=== PATIENT | female | born 1990 | race Caucasian/White ===

== ENCOUNTER 2020-12-01 01:48 | Inpatient (IN) | payer OTHER ==
[~2020-12-01] VITALS: Ht 160 cm; Wt 47.2 kg
[2020-12-01 01:54] VITALS: BP 122/75
[2020-12-01] MEDS ORDERED: PROAIR HFA8.5 GM INH (02:28)
[2020-12-01 02:36] LABS: ABSOLUTE NEUTROPHILS 9.7 thou/uL (1.4-8.2); BASOPHILS 0.4 % (0.0-2.0); EOSINOPHILS 0.2 % (0.0-3.0); HEMOGLOBIN 12.4 gm/dL (12.0-15.0); LYMPHOCYTES 9.4 % (24.0-44.0); MCH 28.6 pg (26.0-34.0); MCHC 32.5 g/dL (28.0-37.0); MCV 87.9 fL (80.0-100.0); MONOCYTES 6.9 % (1.0-8.0); PLATELET COUNT 278 thou/uL (150-400); POLYS 83.1 % (36.0-66.0); RBC 4.33 mil/uL (4.20-5.00); RDW 14.1 % (10.5-14.5); WBC 11.7 thou/uL (4.0-11.0)
[2020-12-01 02:47] LABS: URINE BILIRUBIN NEGATIVE (Negative); URINE BLOOD TRACE (Negative); URINE CLARITY CLEAR; URINE COLOR YELLOW; URINE GLUCOSE-RANDOM* NEGATIVE (Negative); URINE KETONES NEGATIVE (Negative); URINE PROTEIN (DIPSTICK) NEGATIVE (Negative); URINE UROBILINOGEN 0.2 E.U./dl (0.2-1.0)
[2020-12-01 02:49] LABS: URINE LEUKOCYTES-REFLEX 1+ (Negative); URINE NITRITE-REFLEX POSITIVE (Negative)
[2020-12-01 02:52] LABS: CALCIUM 8.9 mg/dL (8.5-10.1); CREATININE 1.1 mg/dL (0.6-1.0); POTASSIUM 3.2 mmol/L (3.5-5.1)
[2020-12-01 02:56] LABS: ALBUMIN 3.5 g/dL (3.4-5.0); TOTAL BILIRUBIN 0.3 mg/dL (0.2-1.0); TOTAL PROTEIN 7.4 g/dL (6.4-8.2)
[2020-12-01 03:19] LABS: BACTERIA-REFLEX >30 Many /HPF (None Seen); CASTS None Seen /LPF (None Seen); CRYSTALS None Seen /LPF (None Seen); MUCUS None Seen strn/LPF (None Seen); SQUAMOUS 0-3 Few /LPF (0-3); URINE RBC None Seen /HPF (0-2); URINE WBC-REFLEX 6-15 Few /HPF (0-5)
[2020-12-01 04:13] VITALS: BP 102/72
--- NOTE | 2020-12-01 04:21 | NUR ---
Attempted to call report to 4th floor nurse. Reports she is on a break and will call back.
[2020-12-01 04:49] VITALS: BP 95/62
--- NOTE | 2020-12-01 05:44 | NUR ---
PT ADMITTED TO THE UNIT WITH C/O FLANK PAIN AND ABDOMINAL PAIN X3DAYS ALONG WITH A HEADACHE .SHE HASNT HAD A BM FOR 3DAYS.PT HAS A TEMPERATURE OF 101.5 ON ADMISSIONA AND TYLENOL ORDERED PRN AND GIVEN. .PT IS A/O X4.PT IS UP AD TERRY.PT ASSESSMENT AND ADMISSION HISTORY DONE .IV ACCESS ON RT AC SL.PT SKIN WITH TATTOO AND NO OTHER SKIN ISSUES.PT IS ON ROOM AIR .WILL CONTINUE TO MONITOR POC
[2020-12-01 08:43] VITALS: BP 105/56
--- NOTE | 2020-12-01 10:59 | NUR ---
Received awake on bed. Due medications given as prescribed, able to swallow meds w/o difficulty. On room air. Vital signs stable. On regular diet- tolerating well; no nausea, no vomiting and no abdominal pain noted. On MS, not on telemetry; no complains of chest pain, crushing sensation an abdominal pain noted. Continent of bowel and bladder, able to go to the toilet independently. Up ad alix. With NS at 125cc/hr, infusing well at R AC. Skin intact. To continue monitoring patient.
--- NOTE | 2020-12-01 13:34 | NUR ---
PT ADMITTED RELATED TO PYELONEPHRISIS. CM REVIEWED CHART AND SPOKE WITH CARE TEAM. CM CALLED AND SPOKE WITH PT THIS DAY. PT APPEARED TO BE A&O X4. CM ROLE INTRODUCED. PT INDICATED SHE RESDIES IN A HOUSE WITH HER FIANCE. 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 PT INDICATED NO PCP. PT INDICATED SHE WASN'T INTERESTED IN A [facility] CLINIC PACKET UPON DC. PT INDICATED SHE PLANS TO RETURN HOME ONCE MEDICALLY STABLE. PT GETTING IV FLUIDS AND IV LEVAQUIN. CM TO FOLLOW INDICATED WITH DC PLANNING.
[2020-12-01 16:28] VITALS: BP 115/48
[2020-12-01 21:06] VITALS: BP 103/57
--- NOTE | 2020-12-02 03:08 | NUR ---
ASSUMED CARE OF PT AT 1900HRS. TP AOX4 AND LETS NEEDS BE KNOWN. PT IS UP AD TERRY. ASSESSMENT CHARTED. FLUIDS CONTINUED. PT REPORTED SOME FLANK PAIN AND PRN PAIN MEDS PROVIDED. PT HAD A TEMP OF 100.1F THIS SHIFT. TYLENOL PROVIDED. PT WAS ABLE TO GET COMFORTABLE AND SLEEP PART OF THE SHIFT. VSS AND NO S/S OF ACUTE DISTRESS. WILL CONTINUE TO MONITOR.
[2020-12-02 05:35] LABS: HEMATOCRIT 32.7 % (37.0-47.0); HEMOGLOBIN 10.8 gm/dL (12.0-15.0); MCH 29.6 pg (26.0-34.0); MCHC 33.1 g/dL (28.0-37.0); MCV 89.5 fL (80.0-100.0); RBC 3.66 mil/uL (4.20-5.00); RDW 14.3 % (10.5-14.5); WBC 9.9 thou/uL (4.0-11.0)
[2020-12-02 05:46] LABS: CALCIUM 8.1 mg/dL (8.5-10.1); CREATININE 0.9 mg/dL (0.6-1.0); POTASSIUM 3.9 mmol/L (3.5-5.1)
[2020-12-02 07:47] VITALS: BP 100/61
--- NOTE | 2020-12-02 10:37 | NUR ---
Pt with low BMI 18.4. Admit with pyelonephritis. Reports stable wt, no loss, and tolerating a regular diet. Low nutrition risk
--- NOTE | 2020-12-02 11:39 | NUR ---
Received awake on bed. Due medications given as prescribed. On MS, not on telemetry; no complains and signs of chest pain, crushing sensation and heaviness. On room air. Vital signs stable. On regular diet- tolerating well; no nausea, no vomiting and no abdominal pain noted. Continent of bowel and bladder, able to go to the toilet independently. Pt not able to have a bowel movement x 3 days- Dr Poole informed re: this; a/w orders. With Ns at 125cc/hr, infusing well at R AC- intact and flushing well. Complained of pain, due PRN pain meds given as prescribed/ Pt requested to talk to Dr Poole- physician informed and aware. To continue monitoring patient.
[2020-12-02] MEDS ORDERED: KEFLEX500 M1 PO (12:34)
--- NOTE | 2020-12-02 15:40 | NUR ---
PT LEFT AMA THIS DAY. PHYSICIAN HAD PROVIDED SCRIPTS FOR PT TO DC HOME WITH. NO OTHER CM INTERVENTION INDICATED. CASE CLOSED.
== END 2020-12-02 13:01 | disposition left against medical advice (07) | DRG 690 ==
LOC: ER 01:48 → EROBS 04:09 → 4W 04:09
PROVIDERS: Emergency Medicine; Nurse Practitioner Family; ADMIT Hospitalist; ATTEND Hospitalist
DX: N12 Tubulo-interstitial nephritis, not specified as acute or chronic (principal); I10 Essential (primary) hypertension; F17.210 Nicotine dependence, cigarettes, uncomplicated; R51.9 Headache, unspecified; E16.2 Hypoglycemia, unspecified; N39.0 Urinary tract infection, site not specified; J45.909 Unspecified asthma, uncomplicated; Z53.29 Procedure and treatment not carried out because of patient's decision for other reasons; Z88.0 Allergy status to penicillin; Z98.891 History of uterine scar from previous surgery
CPT/HCPCS: 10040

== ENCOUNTER 2021-04-26 22:03 | Emergency (ER) | payer OTHER ==
[~2021-04-26] VITALS: Ht 160 cm; Wt 49.9 kg
[~2021-04-26 22:03] MED LIST: KEFLEX500 M1 PO; PROAIR HFA8.5 GM INH
[2021-04-27 00:46] VITALS: BP 108/72
== END 2021-04-27 00:45 | disposition home or self-care (01) ==
LOC: ER 22:03
DX: S61.511A Laceration without foreign body of right wrist, initial encounter (principal); J45.909 Unspecified asthma, uncomplicated; I10 Essential (primary) hypertension; Z88.0 Allergy status to penicillin; W01.0XXA Fall on same level from slipping, tripping and stumbling without subsequent striking against object, initial encounter; Y93.89 Activity, other specified; Y92.89 Other specified places as the place of occurrence of the external cause; Y99.9 Unspecified external cause status